=== PATIENT | female | born 1980 | race Caucasian/White ===

== ENCOUNTER 2024-01-01 04:10 | Emergency (ER) | payer OTHER, MEDICAID, SELFPAY ==
[2024-01-01] VITALS (9 sets, daily range): BP systolic 132–191; BP diastolic 84–113; PULSE 68–95; RESP 18; TEMP 36.4; O2SAT 95–100
--- NOTE | 2024-01-01 04:44 | DI.RAD.S_ITS ---
PROCEDURE: XR CHEST 2V INDICATIONS: cough, dyspnea TECHNIQUE: 2 views of the chest were acquired. COMPARISON: None. FINDINGS: Surgical changes and devices: None. Lungs and pleura: Lungs are clear. No pleural effusions or pneumothorax. Mediastinum: Mediastinal contours are normal. Heart size is normal. Bones and chest wall: No suspicious bony abnormalities. Soft tissues appear unremarkable. IMPRESSION: No acute pulmonary process. Dictated by: Catrachita Cannon M.D. on 01/01/2024 at 12:00 Approved by: Catrachita Cannon M.D. on 01/01/2024 at 12:02
--- NOTE | 2024-01-01 04:45 | ED.URI ---
HPI - URI/Sore Throat General Chief Complaint: Upper Respiratory Symptoms Stated Complaint: coughing, sob possible pnemonia Time Seen by Provider: 01/01/24 04:12 Source: patient Mode of arrival: Ambulatory Related Data Previous Rx's Medication Instructions Recorded albuterol sulfate 90 mcg/actuation 2 puff inhalation Q6H PRN 01/01/24 aerosol inhaler shortness of breath or wheezing #8.5 grams doxycycline monohydrate 100 mg 100 mg PO BID 10 days #20 caps 01/01/24 capsule prednisone 20 mg tablet 40 mg (2 x 20 mg) PO DAILY 5 days 01/01/24 #10 tabs Allergies Allergy/AdvReac Type Severity Reaction Status Date / Time Sulfa (Sulfonamide Allergy Severe Anaphylaxis Verified 01/01/24 05:09 Antibiotics) tomato Allergy Intermediate Hives Verified 01/01/24 05:09 Review of Systems Review of Systems Narrative: per HPI Patient History Social History Smoking Status: Never smoker Smoking Status: Never smoker Substance Use Type: does not use Exam Narrative Exam Narrative: GENERAL: Well-developed patient, in mild distress. HEAD: Atraumatic. Normocephalic. EYES: Pupils equal round and reactive. Extraocular motions intact. No scleral icterus. No injection or drainage. ENT: Nose without bleeding, purulent drainage. Throat without erythema, tonsillar hypertrophy or exudate. Airway patent. NECK: Trachea midline. Non tender CARDIOVASCULAR: Regular rate and rhythm without murmurs, gallops, or rubs. RESPIRATORY: Clear to auscultation. Breath sounds equal bilaterally. No wheezes, rales, or rhonchi. GASTROINTESTINAL: Abdomen soft, non-tender, nondistended. EXTREMITIES: No edema or joint tenderness. BACK: Nontender without deformity or crepitance. No flank tenderness. NEURO: AOx3. SKIN: No rash or erythema of visible areas Initial Vital Signs Initial Vital Signs: Vital Signs Pulse Rate 93 H 01/01/24 04:16 Pulse Oximetry 96 01/01/24 04:16 Course Orders Ordered: ED Orders 01/01/24 04:20 Covid-19 + FLU A/B + RSV - PCR Stat 01/01/24 04:44 XR chest 2V Stat Discontinued Medications Albuterol (Albuterol 2.5 Mg/3 Ml Neb (Adult)) 10 mg INH NOW ONE Stop: 01/01/24 05:41 Last Admin: 01/01/24 05:43 Dose: 10 mg Albuterol/Ipratropium (Albuterol/Ipratropium 3 Ml Ampul) 3 ml INH NOW ONE Stop: 01/01/24 04:51 Last Admin: 01/01/24 05:06 Dose: 3 ml Albuterol/Ipratropium (Albuterol/Ipratropium 3 Ml Ampul) 6 ml INH NOW ONE Stop: 01/01/24 05:11 Last Admin: 01/01/24 05:15 Dose: 6 ml Doxycycline Hyclate (Doxycycline Hyclate 100 Mg Tablet) 100 mg PO NOW ONE Stop: 01/01/24 05:05 Last Admin: 01/01/24 05:13 Dose: 100 mg Methylprednisolone (Methylprednisolone 125 Mg/2 Ml Vial) 125 mg IV NOW ONE Stop: 01/01/24 04:51 Last Admin: 01/01/24 05:12 Dose: 125 mg Vital Signs Vital signs: Vital Signs - 8 hr 01/01/24 04:16 01/01/24 04:18 01/01/24 04:18 Temperature Pulse Rate 93 H 91 H Respiratory Rate Blood Pressure 170/109 H Pulse Oximetry 96 97 Oxygen Delivery Method 01/01/24 04:26 01/01/24 04:30 01/01/24 04:30 Temperature 97.5 F L Pulse Rate 68 84 Respiratory Rate 18 Blood Pressure 170/94 H 167/107 H Pulse Oximetry 97 98 Oxygen Delivery Method Room Air 01/01/24 05:00 01/01/24 05:00 01/01/24 05:30 Temperature Pulse Rate 80 85 Respiratory Rate Blood Pressure 132/84 Pulse Oximetry 99 100 Oxygen Delivery Method 01/01/24 05:44 01/01/24 05:44 01/01/24 06:00 Temperature Pulse Rate 95 H 83 Respiratory Rate Blood Pressure 140/95 H Pulse Oximetry 95 97 Oxygen Delivery Method 01/01/24 06:00 01/01/24 06:30 01/01/24 06:30 Temperature Pulse Rate 75 Respiratory Rate Blood Pressure 156/99 H 191/113 H Pulse Oximetry 96 Oxygen Delivery Method MDM - URI/Sore Throat Lab Data Attestation: I reviewed the patient's lab results. Labs: Lab Results 01/01/24 Range/Units 04:20 SARS-CoV-2 (PCR) Negative (Negative) Influenza A (RT-PCR) Flu a negative (NEGATIVE) Influenza B (RT-PCR) Flu b negative (NEGATIVE) RSV (PCR) Negative (Negative) Imaging Data Chest x-ray: Radiologist's Impression: Impression: Normal. As per tele Radiology report MDM Narrative Medical decision making narrative: 43-year-old female with shortness of breath, wheezing on exam, former smoker, chest x-ray requested, SVN DuoNeb, IV Solu-Medrol, no oxygen requirement but quite wheezy bilateral. P.o. doxycycline dose. Chest x-ray showed no obvious infiltrates. Patient much improved, feels like she can breathe well, needs refill of her albuterol. Albuterol prescription MDI sent to your pharmacy, along with prescriptions for doxycycline and prednisone 5 day pulse. Advised recheck with regular provider in the next couple of days. Return precautions discussed. Improved, home with family. Critical Care Time Critical Care Time Critical Care Time: Yes Total Critical Care Time: 31 Attestation: The high probability of a clinically significant, sudden or life threatening deterioration of the [cardiopulmonary] system(s) required my full and direct attention, intervention and personal management. The aggregate critical care time was [31] minutes. This time is in addition to time spent performing reported procedures but includes the following: [x] Data Review and interpretation [x] Patient assessment and monitoring of vital signs [x] Documentation [x] Medication orders and management Discharge Plan Departure Patient Disposition: Home Clinical Impression: Acute upper respiratory infection, Wheezing Activity Restrictions/Additional Instructions: Former smoker, frequent coughing, increased shortness of breath recent days, wheezing on exam, breathing treatments given, IV Solu-Medrol given, further steroid with prednisone sent to your pharmacy. Consider course of antibiotics, oral doxycycline 1st dose, further dose of doxycycline antibiotic 7 day course called to your pharmacy. Refill albuterol inhaler also sent to your pharmacy. Improved after treatments in the emergency department. Recheck lung exam of the next couple of days with the regular provider. Consider pulmonology referral. Return to this/nearest emergency department for any change worsening symptoms or concerns prior Prescriptions: New prednisone 20 mg tablet 40 mg PO DAILY 5 Days Qty: 10 0RF doxycycline monohydrate 100 mg capsule 100 mg PO BID 10 Days Qty: 20 0RF albuterol sulfate 90 mcg/actuation HFA aerosol inhaler 2 puff inhalation Q6H PRN (Reason: shortness of breath or wheezing) Qty: 8.5 0RF Referrals: [facility], [Other] Stand Alone Forms: Patient Portal/API
[2024-01-01] MEDS: ALBUTEROL/IPRATROPIUM 3 ML AMPUL INH (05:06)
[2024-01-01] MEDS: methylPREDNISolone 125 MG/2 ML VIAL IV (05:12)
[2024-01-01] MEDS: DOXYCYCLINE HYCLATE 100 MG TABLET PO (05:13)
[2024-01-01] MEDS: ALBUTEROL/IPRATROPIUM 3 ML AMPUL 6 ML INH (05:15)
[2024-01-01 05:26] LABS: COVID-19 CEPHEID 4-PLEX PCR Negative (Negative); Influenza A - CEPHEID Flu A NEGATIVE (NEGATIVE); Influenza B - CEPHEID Flu B NEGATIVE (NEGATIVE); Respiratory Syncytial Virus Negative (Negative)
[2024-01-01] MEDS: ALBUTEROL 2.5 MG/3 ML NEB (ADULT) 10 MG INH (05:43)
== END 2024-01-01 06:56 | disposition home or self-care (01) ==
PROVIDERS: Emergency Provider Emergency Medicine
DX: J06.9 Acute upper respiratory infection, unspecified (principal); R06.2 Wheezing
CPT/HCPCS: 87635; 87400 ×2; 87420; 0241U; 71046; 94640; 96374; 99284; J2919; J7613